=== PATIENT | female | born 1990 | race Caucasian/White ===

== ENCOUNTER 2017-03-21 01:13 | Emergency (ER) | payer SELFPAY ==
[2017-03-21] MEDS ORDERED: ALBUTEROL20 ml (01:26)
[2017-03-21] MEDS ORDERED: ARIXTRA (01:26)
[2017-03-21] MEDS ORDERED: DILANTIN (01:26)
[2017-03-21] MEDS ORDERED: NEURONTIN (01:26)
== END 2017-03-21 02:24 | disposition home or self-care (01) ==
LOC: SED 01:13
DX: R56.9 Unspecified convulsions (principal); L02.411 Cutaneous abscess of right axilla; F19.10 Other psychoactive substance abuse, uncomplicated
CPT/HCPCS: 99284